=== PATIENT | male | born 1950 | race Caucasian/White ===

== ENCOUNTER 2024-05-23 14:34 | Emergency (ER) | payer OTHER, BC ==
[~2024-05-23] VITALS: Ht 193 cm; Wt 128.4 kg
[2024-05-23 14:59] VITALS: BP 179/74; PULSE 75; RESP 18; TEMP 97.8; O2SAT 96
== END 2024-05-23 18:08 | disposition left against medical advice (07) ==
LOC: ER 14:37
DX: R20.0 Anesthesia of skin (principal); Z53.21 Procedure and treatment not carried out due to patient leaving prior to being seen by health care provider